=== PATIENT | female | born 1965 | race Caucasian/White ===

== ENCOUNTER 2023-03-18 08:17 | Outpatient (OUT) | payer BC, SELFPAY ==
--- NOTE | 2023-03-18 08:24 | MM_ITS ---
Patient Name: DIEGO FRANCE MR#: [id number] : 1965 Exam Date: 03/18/2023 Ordering Doctor: DR. JULIO CESAR HURTADO . RADIOLOGY REPORT PROCEDURE: MM TOMOSYNTHESIS SCREENING BI COMPARISON: MG MAMM SCREEN YFN W CAD, 01/29/2020. MG MAMM SCREEN 3D YFN CAD, 02/28/2022. INDICATIONS: screening Calculator Name NCI Breast Cancer Risk Assessment Tool 5 Year Breast Cancer Risk 1.50% Lifetime Breast Cancer Risk 8.50% Personal Breast Cancer No Personal Ovarian Cancer No Treatments None Family Cancers Cousin-paternal with breast cancer at age 40; Aunt-paternal with ovarian cancer at age 66. LOCATION: [facility] BREAST COMPOSITION: Heterogeneously dense,which may obscure small masses. FINDINGS: DIAGNOSTIC CATEGORY 1--NEGATIVE. NO CHANGE FROM COMPARISON ASSESSMENT. RIGHT BREAST: No significant suspicious finding. LEFT BREAST: No significant suspicious finding. RECOMMENDATIONS: ROUTINE MAMMOGRAM AND CLINICAL EVALUATION IN 12 MONTHS. PLEASE NOTE: A NORMAL MAMMOGRAM DOES NOT EXCLUDE THE POSSIBILITY OF BREAST CANCER. A CLINICALLY SUSPICIOUS PALPABLE LUMP SHOULD BE BIOPSIED. Dictated by: Ghassan Menchaca MD on 03/18/2023 at 09:38 Approved by: Ghassan Menchaca MD on 03/18/2023 at 09:39
== END 2023-03-18 08:18 | disposition home or self-care (01) ==
LOC: MAMMO 08:19
PROVIDERS: PCP Family Medicine; Visit Provider Family Medicine
DX: Z12.31 Encounter for screening mammogram for malignant neoplasm of breast (principal); Z80.3 Family history of malignant neoplasm of breast; Z80.41 Family history of malignant neoplasm of ovary
CPT/HCPCS: 77063; 77067

== ENCOUNTER 2023-12-20 06:55 | Outpatient (OUT) | payer SELFPAY ==
--- OUTSIDE RECORDS SUMMARY | 2023-12-20 06:56 | XMS_ITS | CCD ---
Author Organization [facility] Care Team Providers Care Lining Setter Name Role Phone ESVIN, DR JV Jaeger Admitting Unavailable FRANKS, DR JV Jaeger Attending Unavailable FRANKS, DR JV Jaeger Primary Care Unavailable FRANKS, DR JV Jaeger Consulting Unavailable ZIEBER, DR BLAYNE Choe Consulting Unavailable Bobby, Lou Garcia Attending Unavailable Bobby, Lou Garcia Attending Unavailable Bobby, Lou Garcia Attending Unavailable Bobby, Lou Garcia Admitting Unavailable Bobby, Lou Garcia Attending Unavailable Bobby, Lou Garcia Attending Unavailable Allergies Allergy Classification Reported Allergen(s) Allergy Type Date of Onset Reaction(s) Facility (1 source) No Known Medication Allergies; Translations: [No Known Medication Allergies] Propensity to adverse reactions (disorder) [facility] Repository Problems Problem Classification Problem Date Documented Da te Episodic/Chronic Other screening for suspected conditions (not mental disorders or infectious disease) (4 sources) Encounter for screening mammogram for malignant neoplasm of breast; Translations: [ENC SCR MAMMO MALIG NEOPLASM BREAST] Onset: 02-28-2022 Episodic Residual codes; unclassified (1 source) Family history of malignant neoplasm of breast; Translations: [FAMILY HX MALIG NEOPLASM OF BREAST] Onset: 03-07-2022 Episodic Residual codes; unclassified (1 source) Family history of malignant neoplasm of ovary; Translations: [FAM HX MALIGNANT NEOPLASM OVARY] Onset: 03-07-2022 Episodic Results Test Name Value Interpretation Reference Range Facil ity Family Medicine Office/Clini c Noteon 12-17-2023 Family Medicine Office/Clinic Note Family Medicine Office/Clinic Note Chief Complaint Cyst on neck HPI Staff Diego is a 58 year old female presenting with cyst on neck and to discuss removal Onset:Cyst on Rt side of neck. Not generally painful. Has had for yrs. History of Present Illness pt presents today for mass on right side of neck Physical Exam Vitals & Measurements T: 36.5 ?C(Tympanic) HR: 78(Peripheral) RR: 16 BP: 136/84 SpO2: 98% HT: 65 in HT: 166 cm WT: 67.55 kg WT: 148.61 lb BMI: 24.51 General: alert, no acute distress ENMT: oral mucosa moist, no pharyngeal erythema or exudate Cardiovascular: regular rate and rhythm, normal peripheral perfusion Respiratory: Lungs CTA, respirations non labored Extremities: no deformity, no trauma Neurological: oriented x 4, LOC appropriate for age, CN II-XII intact, motor strength equal & normal bilaterally, speech normal mass on right side of neck size of a grape Assessment/Plan 1. Mass present on one side of neck (R22.1: Localized swelling, mass and lump, neck) pt presents today with mass on right side of neck. she states it has been there for many many years. Dr. Franks told her it was some kind of benign cyst. her father recently passed from cancer and now she is worried about this mass. will order u/s to determine if it's a simple cyst, lipoma or something else that needs to be managed. she would like to have it removed if possible. will refer to general surgery once u/s results are back. order sent to [facility] 2. BMI 24.0-24.9, adult (Z68.24: Body mass index [BMI] 24.0-24.9, adult) BMI education given Ordered: E&M of Est. Patient Straight Fwd 10-19 Min [id number] 3. Nonsmoker (Z78.9: Other specified health status) continue not smoking Ordered: E&M of Est. Patient Straight Fwd 10-19 Min [id number] Orders: triamcinolone topical, 1 palmira, Topical, BID, 15 gm, Refill(s) 1, [id number], 166, cm, 06/03/23 8:33:00 EDT, Height/Length Dosing, 66.3, kg, 06/03/23 8:33:00 EDT, Weight Dosing Follow-up No qualifying data available Problem List/Past Medical History Ongoing BMI 24.0-24.9, adult Conjunctivitis Mass present on one side of neck Nonsmoker Seasonal allergies Historical No qualifying data Medications montelukast 10 mg Tab, 10 mg= 1 tab(s), Oral, qPM, 3 refills Allergies No Known Medication Allergies Social History Tobacco Never (less than 100 in lifetime) Tobacco Use:. Never Smokeless Tobacco Use:. Household tobacco concerns: No. Yes, 12/17/2023 Family History Diabetes mellitus type 2: Father. [facility] Comment on above: Result Comment: Elec tronically Signed By: Lou Madden\.br\Date and Time Signed: 12/17/23 11:43 EDT Ambulatory Visit Summaryon 0 07-12-2023 Ambulatory Visit Summary DIEGO FRANCE :1965 Visit Date:07/12/2023 Ambulatory Visit Instructions Your Diagnosis UTI symptoms Your Care Team Attending Physician - Lou Madden Primary Care Physician - Lou Madden This Is Your Medications List montelukast (montelukast 10 mg Tab) montelukast (montelukast 10 mg Tab) triamcinolone topical (triamcinolone Top 0.5% Crm) Medications What How Much When Instructions Unchanged montelukast (montelukast 10 mg Tab) 1 Tablets By Mouth Once a day (in the evening) Unchanged montelukast (montelukast 10 mg Tab) 1 Tablets By Mouth Every day TAKE 1 TABLET BY MOUTH ONCE DAILY Unchanged triamcinolone topical (triamcinolone Top 0.5% Crm) 1 Application Topical 2 times a day Allergies No Known Medication Allergies Problems Ongoing - Any problem that you are currently receiving treatment for. Conjunctivitis Seasonal allergies Patient Survey You may receive a survey via text or e-mail asking about your office visit. Please share your experience with us by completing your survey. We appreciate your feedback and thank you for choosing us for your care. [facility] Ambulatory Visit Summaryon 0 06-03-2023 Ambulatory Visit Summary DIEGO FRANCE :1965 Visit Date:06/03/2023 Ambulatory Visit Instructions Your Diagnosis Seasonal allergies BMI 24.0-24.9, adult Non-smoker Your Care Team Attending Physician - Lou Madden Primary Care Physician - Lou Madden This Is Your Medications List montelukast (montelukast 10 mg Tab) montelukast (montelukast 10 mg Tab) triamcinolone topical (triamcinolone Top 0.5% Crm) Discharge Vitals Heart Rate (Peripheral) 88 Respiratory Rate 18 Blood Pressure 124/84 Height 166 cm Height 65 in Weight 66.3 kg Weight 145.86 lb BMI 24.06 Medications What How Much When Instructions Unchanged montelukast (montelukast 10 mg Tab) 1 Tablets By Mouth Once a day (in the evening) Pickup at [facility] Unchanged montelukast (montelukast 10 mg Tab) 1 Tablets By Mouth Every day TAKE 1 TABLET BY MOUTH ONCE DAILY Unchanged triamcinolone topical (triamcinolone Top 0.5% Crm) 1 Application Topical 2 times a day Pickup at [facility] Pharmacy Information [facility] 1628: [address] [facility] [address] [place], [place] [id number] [phone] Allergies No Known Medication Allergies Problems Ongoing - Any problem that you are currently receiving treatment for. Conjunctivitis Seasonal allergies Patient Survey You may receive a survey via text or e-mail asking about your office visit. Please share your experience with us by completing your survey. We appreciate your feedback and thank you for choosing us for your care. [facility] Family Medicine Office/Clini c Noteon 06-03-2023 Family Medicine Office/Clinic Note HPI Staff Diego is a 57 year old female presenting for medication refill Pt would like refill on Triamcinolone cream and montelukast no concerns, pt has no insurance History of Present Illness pt presents today for medication refills Review of Systems PHQ Score Initial Depression Screen Score: 0 SCORE Physical Exam Vitals & Measurements HR: 88(Peripheral) RR: 18 BP: 124/84 SpO2: 97% HT: 65 in HT: 166 cm WT: 66.3 kg WT: 145.86 lb BMI: 24.06 General: alert, no acute distress ENMT: oral mucosa moist, no pharyngeal erythema or exudate Cardiovascular: regular rate and rhythm, normal peripheral perfusion Respiratory: Lungs CTA, respirations non labored Extremities: no deformity, no trauma Neurological: oriented x 4, LOC appropriate for age, CN II-XII intact, motor strength equal & normal bilaterally, speech normal Assessment/Plan 1. Seasonal allergies (J30.2: Other seasonal allergic rhinitis) pt presents today for refills. she does not have insurance and is refusing annual lab work. pt denies needs or complaints at this time. RTC 1 year 2. BMI 24.0-24.9, adult (Z68.24: Body mass index [BMI] 24.0-24.9, adult) BMI education complete 3. Non-smoker (Z78.9: Other specified health status) continue not smoking Ordered: erythromycin ophthalmic, 0.5 in, OPTH, QID, 3.5 gram, Refill(s) 0, [id number], 166, cm, 09/03/22 11:08:00 EDT, Height/Length Dosing, 65.9, kg, 09/03/22 11:08:00 EDT, Weight Dosing Orders: montelukast, 10 mg = 1 tab(s), Oral, qPM, # 90 tab(s), Refills(s) 3, Pharmacy: [facility], 166, cm, 06/03/23 8:33:00 EDT, Height/Length Dosing, 66.3, kg, 06/03/23 8:33:00 EDT, Weight Dosing triamcinolone topical, 1 palmira, Topical, BID, 15 gm, Refill(s) 1, [facility], 166, cm, 06/03/23 8:33:00 EDT, Height/Length Dosing, 66.3, kg, 06/03/23 8:33:00 EDT, Weight Dosing Follow-up No qualifying data available Problem List/Past Medical History Ongoing Conjunctivitis Seasonal allergies Historical No qualifying data Medications montelukast 10 mg Tab, 10 mg= 1 tab(s), Oral, Daily montelukast 10 mg Tab, 10 mg= 1 tab(s), Oral, qPM, 3 refills triamcinolone Top 0.5% Crm, 1 palmira, Topical, BID, 1 refills Allergies No Known Medication Allergies Social History Tobacco Never (less than 100 in lifetime) Tobacco Use:. Never Smokeless Tobacco Use:. Household tobacco concerns: No., 06/03/2023 Family History Diabetes mellitus type 2: Father. [facility] Comment on above: Result Comment: Elec tronically Signed By: Bobby CASTILLO, Lou Garcia\.br\Date and Time Signed: 06/03/23 08:40 EDT Outside Mammographyon 2023 Outside Mammography [id number]. 00TIFF [facility] C Urineon 01-31-2023 Bacteria identified Cx Nom (U) Microbiology PROCEDURE: Urine Culture [R1] SOURCE: U Random BODY SITE: COLLECTED DATE/TIME: 01/29/2023 16:17 EST RECEIVED DATE/TIME: 01/29/2023 19:07 EST START DATE/TIME: 01/29/2023 19:07 EST FREE TEXT SOURCE: Bobby CASTILLO, Lou CASTILLO, Lou Garcia FINAL REPORTS Final Report [] Verified Date/Time: 01/31/2023 07:55 EST <10,000 cfu/ml Mixed skin contaminants Performing Locations R1: This test was performed at: [facility], [address] [place] [address], [facility] , , [facility] Comment on above: Performed By: #### 2 [id number] #### [facility] [address] [place] [address] Nurse Consultation Noteon Nurse Consultation Note Reason for Visit Diego c/o burning with urination doesn't feel good, u/a done and documented in chart. Uses [facility] Assessment/Plan Dysuria (R30.0: Dysuria) Medications erythromycin Opth 0.5% Oint, 0.5 in, OPTH, QID Singulair 4 mg Tab-Chew, 4 mg= 1 tab(s), Chewed, Daily Allergies No Known Medication Allergies Lab Results Ambulatory Point of Care Results Bilirubin Urine Dipstick: Negative (01/29/23 11:55:00) Blood Urine Dipstick: 2+ Moderate (01/29/23 11:55:00) Glucose Urine Dipstick: Negative (01/29/23 11:55:00) Ketones Urine Dipstick: Negative (01/29/23 11:55:00) Leukocytes Urine Dipstick: 2+ Moderate (01/29/23 11:55:00) Nitrite Urine Dipstick: Negative (01/29/23 11:55:00) Protein Urine Dipstick: 1+ (30 mg/dl) (01/29/23 11:55:00) Specific [place] Urine Dipstick: 1.010 (01/29/23 11:55:00) Urine Appearance Urine Dipstick: Cloudy (01/29/23 11:55:00) Urine Color Urine Dipstick: Light yellow (01/29/23 11:55:00) Urobilinogen Urine Dipstick: Normal 0.2-1 EU/dl (01/29/23 11:55:00) pH Urine Dipstick: 6.5 (01/29/23 11:55:00) Normal [facility] MG MAMM SCREEN 3D YFN CADon 02-28-2022 MG MAMM SCREEN 3D YFN CAD Patient: DIEGO FRANCE Exam Date: 02/28/2022 : 1965 Gender:F Ordering : DR JV FRANKS . Admission #: [id number] Family : Order #: [id number] CLICK HERE TO VIEW EXAM RADIOLOGY REPORT PROCEDURE: MAMMOGRAM SCREENING 3D BILATERAL CAD COMPARISON: MG MAMM SCREEN YFN W CAD, 01/03/2018. MG MAMM SCREEN YFN W CAD, 12/28/2016. DIGITIZED_MAMMO, 11/12/2007. MG MAMM SCREEN YFN W CAD, 01/29/2020. INDICATIONS: Screening mammography Calculator Name NCI Breast Cancer Risk Assessment Tool 5 Year Breast Cancer Risk 1.40% Lifetime Breast Cancer Risk 8.70% Personal Breast Cancer No Personal Ovarian Cancer No Treatments None Family Cancers Cousin-paternal with breast cancer at age 40; Aunt-paternal with ovarian cancer at age 66. LOCATION: [facility] BREAST COMPOSITION: Heterogeneously dense,which may obscure small masses. FINDINGS: DIAGNOSTIC CATEGORY 1--NEGATIVE. RIGHT BREAST: No significant suspicious finding. No significant change has occurred. LEFT BREAST: No significant suspicious finding. No significant change has occurred. RECOMMENDATIONS: ROUTINE MAMMOGRAM AND CLINICAL EVALUATION IN 12 MONTHS. PLEASE NOTE: A NORMAL MAMMOGRAM DOES NOT EXCLUDE THE POSSIBILITY OF BREAST CANCER. A CLINICALLY SUSPICIOUS PALPABLE LUMP SHOULD BE BIOPSIED. Dictated by: Blayne Krishnamurthy M.D. on 02/28/2022 at 10:42 Approved by: Blayne Krishnamurthy M.D. on 02/28/2022 at 10:53 Normal [facility] Encounters Encounter Date Encounter Type Care Provider Facility Start: 12-17-2023 End: 12-17-2023 ambulatory Lou L Bobby Facility:[facility] Abbie diego Start: 07-12-2023 End: 07-12-2023 ambulatory Lou L Bobby Facility:[facility] Abbie diego Start: 06-03-2023 End: 06-03-2023 [facility]ulatory [facility] L [facility] Start: 01-29-2023 End: 01-29-2023 ambulatory Lou L Bobby Facility:[facility] Start: 02-28-2022 End: 03-01-[address] JV FRANKS Facility: Payers Date Payer Category Payer Self-pay 1965 Unknown [id number] 1965 Unknown [id number] [id number] [id number] 1965 Unknown [id number] [id number] [id number] 1965 Unknown [id number] 2.16.8 [id number] 1965 Unknown [id number] 2.16.8 [id number] 1965 Unknown [id number] 2.16.8 [id number] 1960 Unknown Summary Purpose Family History No Family History Records FoundNo Family History Records Found Advance Directives No Advanced Directives Records FoundNo Advanced Directives Records Found Additional Source Comments INFORMATION SOURCE (unrecogn ized section and content) DATE CREATED AUTHOR 03/08/2022 [facility] DATE CREATED AUTHOR AUTHOR'S ORGANIZ ATION 12/19/2023 [facility] FOR RECORDS PERTAINING TO PATIENTS WHO ARE OR HAVE BEEN ENROLLED IN A CHEMICAL DEPENDENCY/SUBSTANCEABUSE PROGRAM, SOME INFORMATION MAY BE OMITTED. This clinical summary was aggregated from multiple sources. Caution should be exercised in using it in the provision of clinical care. This summary normalizes information from multiple sources, and as a consequence, information in this document may materially change the coding, format and clinical context of patient data. In addition, data may be omitted in some cases. CLINICAL DECISIONS SHOULD BE BASED ON THE PRIMARY CLINICAL RECORDS. [facility] [employer] [facility]. provides no warranty or guarantee of the accuracy or completeness of information in this document.
--- NOTE | 2023-12-20 06:57 | US_ITS ---
The [address] [address] Patient Name: DIEGO FRANCE MRN: [id number] date: 1965 Sex: F Assigned Patient Location: US Current Patient Location: Accession/Order Number: [id number] Exam Date: 12/20/2023 07:00 Report Date: 12/22/2023 05:29 At the request of: AMANDO SWENSON Procedure: US soft tissue head and neck EXAMINATION: US soft tissue head and neck HISTORY: Mass Right Side Of Neck COMPARISON: No relevant comparison available. FINDINGS: Within the subcutaneous fat of the lateral upper right side of the neck is an oval hypoechoic heterogeneous mass with slightly enhanced through transmission, 1.3 x 1.1 x 0.6 cm. No appreciable internal blood flow on color Doppler. US/US soft tissue head and neck IMPRESSION: 1. Nonspecific 1.3 cm mass within the subcutaneous fat corresponding to patient's palpable lump. I suspect this represents a lipoma, but ultrasound-guided tissue sampling should be considered. Electronically authenticated by: TREMAYNE RAM Date: 12/22/2023 05:29
== END 2023-12-20 06:56 | disposition home or self-care (01) ==
LOC: US 06:55
PROVIDERS: PCP Family Medicine; Visit Provider Nurse Practitioner
DX: R22.1 Localized swelling, mass and lump, neck (principal)
CPT/HCPCS: 76536

== ENCOUNTER 2024-03-25 09:37 | Outpatient (OUT) | payer BC, SELFPAY ==
--- NOTE | 2024-03-25 09:40 | MM_ITS ---
Patient Name: DIEGO FRANCE MR#: [id number] : 1965 Exam Date: 03/25/2024 Ordering Doctor: DR. JULIO CESAR HURTADO . RADIOLOGY REPORT PROCEDURE: MM TOMOSYNTHESIS SCREENING BI COMPARISON: MG MAMM SCREEN 3D YFN CAD, 02/28/2022. MM TOMOSYNTHESIS SCREENING BI, 03/18/2023. INDICATIONS: Screening Calculator Name NCI Breast Cancer Risk Assessment Tool 5 Year Breast Cancer Risk 1.50% Lifetime Breast Cancer Risk 8.30% Personal Breast Cancer No Personal Ovarian Cancer No Treatments None Family Cancers Cousin-paternal with breast cancer at age 40; Aunt-paternal with ovarian cancer at age 66. LOCATION: [facility] BREAST COMPOSITION: The breasts are heterogeneously dense,which may obscure small masses. FINDINGS: DIAGNOSTIC CATEGORY 1--NEGATIVE. NO CHANGE FROM COMPARISON ASSESSMENT. RIGHT BREAST: No significant suspicious finding. LEFT BREAST: No significant suspicious finding. RECOMMENDATIONS: ROUTINE MAMMOGRAM AND CLINICAL EVALUATION IN 12 MONTHS. PLEASE NOTE: A NORMAL MAMMOGRAM DOES NOT EXCLUDE THE POSSIBILITY OF BREAST CANCER. A CLINICALLY SUSPICIOUS PALPABLE LUMP SHOULD BE BIOPSIED. Dictated by: Ghassan Menchaca MD on 03/25/2024 at 11:14 Approved by: Ghassan Menchaca MD on 03/25/2024 at 11:15
== END 2024-03-25 09:38 | disposition home or self-care (01) ==
LOC: MAMMO 09:37
PROVIDERS: PCP Family Medicine; Visit Provider Family Medicine
DX: Z12.31 Encounter for screening mammogram for malignant neoplasm of breast (principal); Z80.3 Family history of malignant neoplasm of breast; Z80.41 Family history of malignant neoplasm of ovary
CPT/HCPCS: 77063; 77067